=== PATIENT | male | born 1955 | race Caucasian/White ===

== ENCOUNTER 2018-02-16 13:45 | Observation (INO) | payer BC ==
[~2018-02-16] VITALS: Ht 165.1 cm; Wt 101.5 kg
[2018-02-16] MEDS ORDERED: LISINOPRIL20 MG PO (13:52)
[2018-02-16] MEDS ORDERED: AMLODIPINE BESY10 MG PO (13:53)
[2018-02-16] MEDS ORDERED: ALLOPURINOL100 MG PO (13:53)
[2018-02-16] MEDS ORDERED: METOPROLOL SUC100 MG PO (13:54)
[2018-02-16] MEDS ORDERED: ADULT ASPIRIN81 MG PO (13:55)
[2018-02-16] MEDS ORDERED: VITAMIN D32000 UNI1 PO (13:57)
[2018-02-16 14:50] LABS: HEMOGLOBIN 16.1 G/DL (12.5-16.6); MCH 33.4 PG (29.0-34.0); MCV 95.4 FL (86-99); PLATELET COUNT 164 K/uL (156-360); RBC DIS.WIDTH-CV 12.3 % (11.8-14.6); RBC DIS.WIDTH-SD 43.4 % (39-53); RED BLOOD COUNT 4.82 M/uL (4.00-5.50); WHITE BLOOD COUNT 7.3 K/uL (4.1-10.2)
[2018-02-16 14:58] LABS: CHLORIDE 103 mEq/L (99-109); POTASSIUM 4.2 mEq/L (3.7-5.4); SODIUM 138 mEq/L (136-147)
[2018-02-16 14:59] LABS: GLUCOSE 103 mg/dL (70-99)
[2018-02-16 15:03] LABS: CREATININE 0.9 mg/dL (0.6-1.3); GFR ESTIMATE (CALCULATED) > 59 mL/min/ (58.99-99999)
[2018-02-16 15:04] LABS: UREA NITROGEN (BUN) 14 mg/dL (9-23)
[2018-02-16 15:12] LABS: TROP-I INTERPRETATION NEGATIVE; TROPONIN-I 0.01 ng/mL (0.0-0.30)
[2018-02-16 17:40] LABS: THYROTROPIN (TSH) 2.4 MIU/L (0.4-5.5)
[2018-02-16 19:03] LABS: TROP-I INTERPRETATION NEGATIVE; TROPONIN-I < 0.01 ng/mL (0.0-0.30)
[2018-02-16 19:49] LABS: MAGNESIUM 2.1 mg/dl (1.3-2.7)
[2018-02-16 20:00] VITALS: BP 124/77
[2018-02-17 00:21] VITALS: BP 115/60
[2018-02-17 01:01] LABS: TROP-I INTERPRETATION NEGATIVE; TROPONIN-I < 0.01 ng/mL (0.0-0.30)
[2018-02-17 03:38] VITALS: BP 128/74
[2018-02-17 07:09] LABS: TROP-I INTERPRETATION NEGATIVE; TROPONIN-I < 0.01 ng/mL (0.0-0.30)
[2018-02-17 08:12] VITALS: BP 126/66
[2018-02-17] MEDS ORDERED: ELIQUIS5 MG PO (11:19)
[2018-02-17] MEDS ORDERED: CARDIZEM30 MG PO (11:28)
[2018-02-17 12:04] VITALS: BP 132/74
[2018-02-18 13:14] LABS: HEMOGLOBIN A1c (GLYCOHEMOGLOB) 5.6 % (Below 5.7)
== END 2018-02-17 12:07 | disposition home or self-care (01) ==
LOC: EME 13:45 → 4SOUTH 16:23 → EDOF 16:23 → ENRESERV 16:40 → 4SOUTH 17:54
PROVIDERS: Emergency Medicine; Hospitalist
DX: I48.92 Unspecified atrial flutter (principal); I10 Essential (primary) hypertension; R73.03 Prediabetes; F10.10 Alcohol abuse, uncomplicated; I48.0 Paroxysmal atrial fibrillation; Z79.01 Long term (current) use of anticoagulants; M10.9 Gout, unspecified; L40.9 Psoriasis, unspecified; E78.00 Pure hypercholesterolemia, unspecified; E78.1 Pure hyperglyceridemia; E55.9 Vitamin D deficiency, unspecified; Z79.82 Long term (current) use of aspirin; Z87.891 Personal history of nicotine dependence; Z82.5 Family history of asthma and other chronic lower respiratory diseases; Z88.8 Allergy status to other drugs, medicaments and biological substances
CPT/HCPCS: 71046; 80048; 83036; 83735; 84443; 84484; 85027; 93005; 99281; 99285; G0378; J7040